=== PATIENT | female | born 1945 | race Caucasian/White ===

== ENCOUNTER 2016-08-23 10:23 | Emergency (ER) | payer MEDICARE ==
[~2016-08-23] VITALS: Ht 167.6 cm; Wt 64.4 kg
[~2016-08-23 10:23] MED LIST: THYR90TA PO
--- NOTE | 2016-08-23 10:27 | NUR ---
PT IS IN ROOM #1B. DR JOHNSON EVALUATED THE PT.
[2016-08-23] MEDS ORDERED: CEFTRIAXONE 1 G in IV DEXTROSE 5% 50 ML IV ONE (11:15)
[2016-08-23] MEDS ORDERED: DEXAMETHASONE SOD PHOSPHATE 4 MG INJ IV ONE (11:15)
[2016-08-23 11:23] LABS: BASOPHILS % (AUTO) 0.9 % (0.0-2.0); EOSINOPHILS # (AUTO) 0.1 K/uL (0.0-0.7); EOSINOPHILS % (AUTO) 1.2 % (0.0-7.0); HEMATOCRIT 42.7 % (37.0-47.0); HEMOGLOBIN 14.5 g/dL (12.0-16.0); LYMPHOCYTES # (AUTO) 1.2 K/uL (0.8-4.8); LYMPHOCYTES % (AUTO) 24.3 % (20.5-51.5); MEAN CORPUSCULAR HEMOGLOBIN 30.1 uug (27.0-31.0); MEAN CORPUSCULAR HGB CONC 34 g/dL (32.0-37.0); MEAN CORPUSCULAR VOLUME 88.9 fL (81.0-99.0); MONOCYTES # (AUTO) 0.5 K/uL (0.1-1.30); MONOCYTES % (AUTO) 9.2 % (0.0-11.0); NEUTROPHILS # (AUTO) 3.2 K/uL (1.8-8.9); NEUTROPHILS % (AUTO) 64.4 % (38.5-71.5); PLATELET COUNT (AUTO) 184 K/uL (150-450); RED CELL DISTRIBUTION WIDTH 13.5 % (11.5-14.5); WHITE BLOOD COUNT (AUTO) 5.1 K/uL (4.0-11.2)
[2016-08-23] MEDS ORDERED: CEFTRIAXONE 1 G VIAL ONE (11:31)
[2016-08-23] MEDS ORDERED: DEXAMETHASONE SOD PHOSPHATE 10 MG INJ ONE (11:31)
[2016-08-23 11:33] LABS: CALCIUM 9.6 mg/dL (8.5-10.1); POTASSIUM 4.1 mmol/L (3.5-5.1)
[2016-08-23 11:39] LABS: TROPONIN I < 0.017 ng/mL (0.00-0.056)
[2016-08-23] MEDS ORDERED: AZITHROMYCIN 250 MG TABLET PO ONE (11:45)
[2016-08-23 11:46] LABS: ALBUMIN 3.6 g/dL (3.4-5.0); BILIRUBIN,DIRECT 0.1 mg/dL (0.0-0.2); BILIRUBIN,TOTAL 0.5 mg/dL (0.2-1.0); TOTAL PROTEIN, SERUM 7.2 g/dL (6.4-8.2)
[2016-08-23 11:47] LABS: LACTIC ACID 1.2 mmol/L (0.4-2.0)
[2016-08-23] MEDS ORDERED: AZITHROMYCIN 250 MG TABLET ONE (11:58)
--- NOTE | 2016-08-23 12:30 | NUR ---
PT WAS D/C TO HOME. D/C INSTRUCTIONS GIVEN TO THE PT.
[2016-08-23 12:31] VITALS: BP 131/79
== END 2016-08-23 12:32 | disposition home or self-care (01) ==
LOC: ER 10:23
DX: J18.9 Pneumonia, unspecified organism (principal); R94.31 Abnormal electrocardiogram [ECG] [EKG]; E03.9 Hypothyroidism, unspecified
CPT/HCPCS: 36415; 70030-TC; 71010; 83605; 85025; 87040; 93005; A4663; J0696; J1100; J3490; Q0144

== ENCOUNTER 2024-06-01 02:44 | Emergency (ER) | payer MEDICARE ==
[~2024-06-01] VITALS: Ht 165.1 cm; Wt 61.2 kg
[2024-06-01] MEDS ORDERED: NITROGLYCERIN 0.4 MG/TAB BOTTLE SL ONE (03:46)
[2024-06-01] MEDS ORDERED: ACETAMINOPHEN 500 MG TABLET ONE (03:46)
[2024-06-01] MEDS ORDERED: ASPIRIN EC 81 MG TABLET.DR PO ONE (03:46)
[2024-06-01] MEDS ORDERED: NITROGLYCERIN OINT 1 GM PACKET TP ONE (03:46)
[2024-06-01] MEDS: NITROGLYCERIN 0.4 MG/TAB BOTTLE SL ONE (03:57)
[2024-06-01] MEDS: ACETAMINOPHEN 500 MG TABLET PO ONE (03:57)
[2024-06-01] MEDS: NITROGLYCERIN OINT 1 GM PACKET TP ONE (03:57)
[2024-06-01] MEDS: ASPIRIN 81 MG TAB.CHEW PO ONE (03:57)
[2024-06-01 04:17] LABS: BASOPHILS % (AUTO) 0.8 % (0.0-2.0); EOSINOPHILS # (AUTO) 0.1 K/uL (0.0-0.7); EOSINOPHILS % (AUTO) 2.1 % (0.0-7.0); HEMATOCRIT 43.4 % (31.2-41.9); HEMOGLOBIN 14.5 g/dL (10.9-14.3); LYMPHOCYTES # (AUTO) 2.1 K/uL (0.8-4.8); LYMPHOCYTES % (AUTO) 35.6 % (20.5-51.5); MEAN CORPUSCULAR HEMOGLOBIN 29.7 uug (24.7-32.8); MEAN CORPUSCULAR HGB CONC 33 g/dL (32.3-35.6); MEAN CORPUSCULAR VOLUME 89.1 fL (75.5-95.3); MONOCYTES # (AUTO) 0.4 K/uL (0.1-1.30); MONOCYTES % (AUTO) 5.9 % (0.0-11.0); NEUTROPHILS # (AUTO) 3.3 K/uL (1.8-8.9); NEUTROPHILS % (AUTO) 55.6 % (38.5-71.5); PLATELET COUNT (AUTO) 231 K/uL (179-408); RED BLOOD CELL COUNT(AUTO) 4.87 MIL/uL (3.63-4.92); RED CELL DISTRIBUTION WIDTH 14.7 % (12.3-17.7); WHITE BLOOD COUNT (AUTO) 5.9 K/uL (3.8-11.8)
[2024-06-01 04:22] LABS: DIFFERENTIAL COMMENT 1
[2024-06-01 05:36] LABS: ALANINE AMINOTRANSFERASE 24 U/L (14-59); ALBUMIN 3.7 g/dL (3.4-5.0); ALKALINE PHOSPHATASE 79 U/L (50-136); ASPARTATE AMINOTRANSFERASE 14 U/L (15-37); BILIRUBIN,DIRECT 0.1 mg/dL (0.0-0.2); BILIRUBIN,TOTAL 0.5 mg/dL (0.2-1.0); CALCIUM 8.9 mg/dL (8.5-10.1); CARBON DIOXIDE 26 mmol/L (21-32); CHLORIDE 108 mmol/L (98-107); CREATININE 0.6 mg/dL (0.6-1.3); GLUCOSE 119 mg/dL (74-106); NT-PRO BNP 163 pg/mL (0-125); POTASSIUM 4.2 mmol/L (3.5-5.1); SODIUM SERUM 144 mmol/L (136-145); TOTAL PROTEIN, SERUM 7.5 g/dL (6.4-8.2); UREA NITROGEN, BLOOD 12 mg/dL (7-18)
[2024-06-01] MEDS ORDERED: CLON0.1T PO (05:51)
[2024-06-01 06:28] VITALS: BP 129/87; TEMP 98.1; O2SAT 98
== END 2024-06-01 06:10 | disposition home or self-care (01) ==
LOC: ER 02:51
DX: I10 Essential (primary) hypertension (principal); I44.7 Left bundle-branch block, unspecified; M79.622 Pain in left upper arm; Z87.01 Personal history of pneumonia (recurrent); Z79.890 Hormone replacement therapy; Z88.7 Allergy status to serum and vaccine
CPT/HCPCS: 36415; 71045; 84484; 85025; A4606; A4663; A9150